=== PATIENT | male | born 1980 | race Caucasian/White ===

== ENCOUNTER 2017-08-10 03:37 | Emergency (ER) | payer OTHER, SELFPAY ==
[2017-08-10 03:38] VITALS: BP 157/103; PULSE 90; RESP 16; TEMP 37; O2SAT 97; BMI 15.2
--- NOTE | 2017-08-10 03:46 | CT_ITS ---
STUDY: CT ABDOMEN AND PELVIS WITH CONTRAST REASON FOR EXAM: Male, 37 years old. RADIATION DOSAGE (If Supplied By Facility): CTDIvol = ( 16.48 ) mGy, DLP = ( 1086.65 ) mGycm TECHNIQUE: Transaxial images were obtained from the dome of the diaphragm to the symphysis pubis without oral contrast. 100ML ml of Isovue 300 contrast was administered. Sagittal and coronal images were reconstructed. Individualized dose optimization techniques were used for this CT. COMPARISON: None. FINDINGS: The lung bases are clear. The liver is normal with no dilated intrahepatic biliary radicles. The gallbladder is normal with no gallstones and no pericholecystic fluid collection or streakiness. The spleen, pancreas and both adrenals are normal. The kidneys are normal with no masses, calculi or hydronephrosis. The stomach is normal. There is no bowel distention, acute appendicitis or diverticulitis. No abnormally constricting large bowel lesions. Acute mental changes involving the terminal ileum. Acute ileitis. Crohn's would be a differential consideration. The abdominal wall is intact. There is no ascites, free intraperitoneal air or any evidence of epiploic appendagitis. The vascular structures in the retroperitoneum are normal The bones and joints seen are normal with no osteolytic or osteoblastic changes There is no retrocrural, retroperitoneal or mesenteric adenopathy. There is no mesenteric mistiness The urinary bladder is normal.. The prostate is normal There is no inguinal or pelvic adenopathy and there is no inguinal hernia. CT/Abdomen/Pelvis WITH Contrast IMPRESSION: Acute terminal ileitis. Crohn's disease (chronic terminal ileitis) will be a differential consideration. No acute appendicitis or diverticulitis Electronically Signed: Narciso Esteban, at 6:08 EDT Tel , Service support ,
[2017-08-10] MEDS: 0.9% Normal Saline 1,000 ML 1000 ML IV (03:50)
[2017-08-10 03:55] LABS: Absolute Lymphocyte Count 1.57 X10^3/ul (0.83-4.51); Absolute Neutrophil Count 8.4 X10^3/uL (2.0-7.7); Basophil# 0.02 X10^3/uL; Basophil% 0.2 % (0-1); Eosinophil# 0.09 X10^3/uL; Eosinophils% 0.8 % (0-5); Hematocrit 39.4 % (40-54); Hemoglobin 13.9 g/dl (13.0-16.5); Lymphocyte # 1.57 X10^3/ul (4.0); Lymphocyte % 13.8 % (19-41); Mean Corp Hgb Conc 35.3 g/gl (32-36); Mean Corpuscular Volume 84.9 fL (80-94); Mean Platelet Vol. 8.9 fl (6.2-12.0); Monocyte# 1.28 X10^3/uL; Monocyte% 11.2 % (0-10); Neutrophil # 8.42 X10^3/uL (2.7-7.7); Neutrophil % 73.9 % (47-70); POSITIVE COUNT NO; POSITIVE DIFFERENTIAL NO; POSITIVE MORPHOLOGY NO; Platelet Count 205 K/mm3 (150-450); RBC Distribution Width CV 13.4 % (11.6-14.6); RBC Distribution Width SD 40.9 fl (35.1-43.9); Red Blood Count 4.64 M/mm3 (4.6-6.2); White Blood Count 11.4 K/mm3 (4.4-11.0)
[2017-08-10] MEDS: Ondansetron 4 MG/2 ML Vial IV (04:10)
[2017-08-10] MEDS: Morphine 4 MG/ML Syringe IV (04:10)
[2017-08-10 04:11] LABS: Anion Gap 8 (5-15); BUN 20 mg/dL (7-18); BUN/Creat Ratio 17.7 RATIO (10-20); Calcium,Total 8.6 mg/dL (8.5-10.1); Chloride 110 mmol/L (98-107); Creatinine, Serum 1.13 mg/dL (0.70-1.30); EST Glomerular Filtration Rate 78 mL/min (>60); Est Glom Filt Rate - Afr Amer 95 mL/min (>60); Estimated Creatinine Clearance 53.45 ml/min; Glucose 123 mg/dL (74-106); Potassium 3.7 mmol/L (3.5-5.1); Sodium Level 143 mmol/L (136-145)
[2017-08-10 04:26] LABS: Bacteria 0 SEEN /hpf (None Seen); Mucous, Urine 0 SEEN /hpf (<or=2+); Squamous Epithelial Cells - UA 0 SEEN /hpf (0-5); White Blood Cells 0 SEEN /hpf (0-5)
[2017-08-10 04:29] LABS: Color, Urine Yellow (Yellow); Glucose, Dipstick Normal (Normal); Ketone-Dipstick Negative (Negative); Leukocyte Esterase-Dipstick Negative /ul (Negative); Nitrite-Dipstick Negative (Negative); Occult Blood-Urine 150 /ul (Negative); Protein-Dipstick 15 mg/dl (Negative); Specific Gravity, Urine 1.025 (1.002-1.030); Urine Bilirubin Dipstick Negative (Negative); Urine Clarity Clear (Clear); Urine Urobilinogen Normal (Normal)
[2017-08-10 05:02] LABS: Red Blood Cells-Urine 0-5 SEEN /hpf (0-5)
--- NOTE | 2017-08-10 05:16 | ED.VISSUMM ---
- ER Visit Summary Date of Service: 08/10/17 Chief Complaint: Abdominal pain History of Present Illness: The patient is a [address] Ceron. He reports that he has abdominal pain that began 3 days ago. Is gradually gotten worse. It is a cramping pain that is 10 out of 10 at worst and 6 out of 10 currently. Is worsened by movement. Is unchanged by food. It is relieved by remaining still. He denies any nausea, vomiting, or diarrhea. His last problem was today. He has had no melena or hematochezia. No dysuria or frequency. He does complain of subjective fever and chills. Physical Examination: Vitals: Stable. Afebrile. General: Well-nourished and well-developed. Head: Normocephalic atraumatic. Neck: Supple, no lymphadenopathy. No JVD. Nontender. Cardiovascular: Regular rate and rhythm. No murmurs. Respiratory: No respiratory distress. Clear to auscultation bilaterally. Abdominal: Soft, moderate tenderness to palpation in the right lower quadrant, nondistended, normal bowel sounds. He does have a rebound tenderness. No guarding. Back: Nontender. Extremities: Nontender, no edema. Skin: Normal color, no rash. Neurologic: Alert and oriented ?3. Cranial nerves II through XII are intact. Normal strength and sensation. Psych: Normal affect. Test Results: CBC is remarkable for a white count of 11.4, hematocrit of 39.4, segmented neutrophils of 74, lymphocytes of 14, and monocytes of 11. Chem-7 is more for chloride of 110, glucose of 123, and BUN of 20. UA is negative. Clinical Impression(s) from Imaging Studies Abdomen/Pelvis CT 08/10/17 03:46 IMPRESSION: Acute terminal ileitis. Crohn's disease (chronic terminal ileitis) will be a differential consideration. No acute appendicitis or diverticulitis Emergency Department Course and Treatment: Patient had an IV placed. He is given morphine and Zofran IV. He is resting comfortably. The patient was given Cipro and Flagyl here. He has been unable to produce a stool sample. Treatment Plan: The patient was discussed with Dr. Rutledge. He has certainly had exposure to animals and unpasteurized food. Salmonella and Yersinia are in the differential. He will be placed on Cipro, Flagyl, Zofran, and [place]. Instructed to follow-up with Dr. Rutledge in 1 week for repeat exam. He does understand that if he is not improving he may require colonoscopy and/or referral to gastroenterology. The patient is happy with this plan. Return to the emergency department for any worsening symptoms. Disposition: To home in improved and stable condition. Impression: 1. Terminal ileitis. This note was generated with [employer] dictation software. It may contain incorrect words, spelling, and punctuation that were not noted in review of the chart prior to signing ED Disposition - Plan for ED Patient: Chief Complaint: Abd Pain Instructions: ED Abdominal Pain Unkn Cause Prescriptions: Ondansetron [Zofran Odt] 4 mg PO Q8H PRN PRN #10 tablet PRN Reason: Nausea Hydrocodone/Acetaminophen [[place] 5-325 Tablet] 1 - 2 each PO 4X/DAY PRN PRN 5 Days #20 tablet PRN Reason: Pain Ciprofloxacin [Cipro] 500 mg PO BID #20 tablet Metronidazole [Flagyl] 500 mg PO Q6H #40 tablet Referrals: Pearl Rutledge MD [STAFF PHYSICIAN] - 1 Week
[2017-08-10 05:46] VITALS: BP 161/105; PULSE 73; O2SAT 98
[2017-08-10] MEDS: Ciprofloxacin 500 MG Tablet 250 MG PO (08:07)
[2017-08-10] MEDS: metroNIDAZOLE 500 MG Tablet PO (08:07)
[2017-08-10] MEDS: HYDROcodone Bitartrate/Apap 5/325 Tablet PO (08:08)
[2017-08-10] MEDS: Ondansetron ODT 4 MG Tablet PO (08:09)
[2017-08-10 08:45] VITALS: BP 139/74; PULSE 82; RESP 22; O2SAT 97
--- NOTE | 2017-08-10 08:46 | ED.RN ---
THIS NURSE REVIEWED D/C INSTRUCTIONS WITH PT. PT VERBALIZED UNDERSTANDING OF INSTRUCTIONS. IV D/C. IV CATHETER INTACT. PT TOLERATED WELL. PT DENIES FURTHER NEEDS OR QUESTIONS AT THIS TIME. PT AMBULATES FROM ROOM ON OWN WITHOUT ASSISTANCE FROM STAFF
== END 2017-08-10 08:47 | disposition home or self-care (01) ==
PROVIDERS: Emergency Provider Emergency Medicine; Family Provider Family Medicine; PCP Family Medicine
DX: K50.00 Crohn's disease of small intestine without complications (principal); Z72.0 Tobacco use
CPT/HCPCS: 74177; 80048; 81001; 85025; 96361; 96374; 96375; 99284; J7030; Q9967; A4216; J2405